=== PATIENT | male | born 2000 | race Caucasian/White ===

== ENCOUNTER 2019-09-14 20:51 | Emergency (ER) | payer OTHER ==
[~2019-09-14] VITALS: Ht 175.3 cm; Wt 91.6 kg
[2019-09-14 21:25] VITALS: Ht 175.3 cm; Wt 91.6 kg
[2019-09-14 21:44] LABS: BASOPHIL % 0 % (0-2); PLATELET COUNT 214 x10^3mcL (130-400); RED CELL DISTRIBUTION WIDTH 13.3 % (11.5-14.5)
[2019-09-14 21:45] LABS: CALCIUM 8.6 mg/dL (8.5-10.1); CARBON DIOXIDE 26.8 mmol/L (21-32); CHLORIDE SERUM 98 mmol/L (98-107); GFR1 > 60 mL/min; GLUCOSE SERUM 115 mg/dL (74-106); POTASSIUM SERUM 3.2 mmol/L (3.5-5.1); SODIUM SERUM 137 mmol/L (136-145)
[2019-09-14 21:50] LABS: ALBUMIN 3.8 g/dL (3.4-5.0); ALKALINE PHOSPHATASE 67 U/L (46-116); ALT/SGPT 21 U/L (16-63); AST/SGOT 26 U/L (15-37); BILIRUBIN TOTAL 0.5 mg/dL (0.20-1.00)
[2019-09-14 21:51] LABS: TOTAL PROTEIN, SERUM 8.7 g/dL (6.4-8.2)
[2019-09-14 23:53] VITALS: BP 121/68
== END 2019-09-14 23:53 | disposition home or self-care (01) ==
LOC: ED 20:51
PROVIDERS: Emergency Medicine
DX: K52.9 Noninfective gastroenteritis and colitis, unspecified (principal); E87.6 Hypokalemia; E86.0 Dehydration
CPT/HCPCS: J7030

== ENCOUNTER 2020-01-18 23:10 | Emergency (ER) | payer OTHER, SELFPAY ==
[~2020-01-18] VITALS: Ht 175.3 cm; Wt 95.3 kg
[2020-01-18 23:14] VITALS: Ht 175.3 cm; Wt 95.3 kg
[2020-01-19 00:10] VITALS: BP 128/90
== END 2020-01-19 00:10 | disposition home or self-care (01) ==
LOC: ED 23:10
DX: B34.9 Viral infection, unspecified (principal); E78.00 Pure hypercholesterolemia, unspecified; Z20.828 Contact with and (suspected) exposure to other viral communicable diseases
CPT/HCPCS: U0003-CS

== ENCOUNTER 2020-04-06 14:24 | Emergency (ER) | payer OTHER, SELFPAY ==
[~2020-04-06] VITALS: Ht 175.3 cm; Wt 95.3 kg
[2020-04-06 14:30] VITALS: Ht 175.3 cm; Wt 95.3 kg
[2020-04-06 16:09] LABS: PLATELET COUNT 282 x10^3mcL (130-400); RED CELL DISTRIBUTION WIDTH 13.6 % (11.5-14.5)
[2020-04-06 16:12] LABS: BASOPHIL % 0 % (0-2)
[2020-04-06 16:27] LABS: ALKALINE PHOSPHATASE 67 U/L (46-116); ALT/SGPT 31 U/L (16-63); AST/SGOT 28 U/L (15-37); BILIRUBIN TOTAL 0.5 mg/dL (0.20-1.00); CHLORIDE SERUM 100 mmol/L (98-107); CREATININE SERUM 0.9 mg/dL (0.7-1.3); GFR1 > 60 mL/min; GLUCOSE SERUM 94 mg/dL (74-106); LIPASE 77 IU/L (73-393); POTASSIUM SERUM 3.7 mmol/L (3.5-5.1); SODIUM SERUM 136 mmol/L (136-145); TOTAL PROTEIN, SERUM 8.1 g/dL (6.4-8.2)
[2020-04-06 16:57] LABS: CARBON DIOXIDE 25.9 mmol/L (21-32)
[2020-04-06 19:06] VITALS: BP 138/99
== END 2020-04-06 19:06 | disposition home or self-care (01) ==
LOC: ED 14:24
PROVIDERS: Emergency Medicine
DX: R10.13 Epigastric pain (principal); R11.2 Nausea with vomiting, unspecified; E78.00 Pure hypercholesterolemia, unspecified
CPT/HCPCS: 87804; J7030